=== PATIENT | female | born 1995 | race African-American/Black ===

== ENCOUNTER 2016-11-04 12:31 | Emergency (ER) | payer OTHER ==
[~2016-11-04] VITALS: Wt 52.2 kg
[~2016-11-04 12:31] MED LIST: BACTRIM DS 8001 TA1 PO; CIPRO500 MG PO; IRON325 M1 PO; KEFLEX500 MG PO; MACROBID100 M1 PO; MOTRIN600 MG PO; NAPROSYN500 MG PO; NKHM; PRENATAL1 TA1 PO; PRENATAL1 TA3 PO; PROTONIX40 MG PO; ZOFRAN ODT4 MG SL; [UNRECOGNIZED DRUG - REMARK]
[2016-11-04 12:43] VITALS: BP 139/89
== END 2016-11-04 14:00 | disposition home or self-care (01) ==
LOC: ED 12:31
DX: B34.9 Viral infection, unspecified (principal); F17.200 Nicotine dependence, unspecified, uncomplicated; Z79.899 Other long term (current) drug therapy; Z88.0 Allergy status to penicillin; Z88.1 Allergy status to other antibiotic agents

== ENCOUNTER 2022-07-18 11:55 | Emergency (ER) | payer OTHER ==
[~2022-07-18] VITALS: Ht 165.1 cm; Wt 49.9 kg
[2022-07-18 12:11] VITALS: BP 112/74
== END 2022-07-18 14:34 | disposition home or self-care (01) ==
LOC: ED 11:55
DX: J06.9 Acute upper respiratory infection, unspecified (principal); Z20.822 Contact with and (suspected) exposure to COVID-19; Z88.0 Allergy status to penicillin; Z88.1 Allergy status to other antibiotic agents

== ENCOUNTER 2022-07-21 17:28 | Emergency (ER) | payer OTHER ==
[~2022-07-21] VITALS: Ht 165.1 cm; Wt 49.9 kg
[2022-07-21 17:47] VITALS: BP 117/68
[2022-07-21] MEDS ORDERED: PROVENTIL HFA6.7 GM INH (21:30)
[2022-07-21] MEDS ORDERED: IBUPROFEN600 MG PO (21:30)
== END 2022-07-21 22:05 | disposition home or self-care (01) ==
LOC: ED 17:28
DX: B34.9 Viral infection, unspecified (principal); Z20.822 Contact with and (suspected) exposure to COVID-19; Z88.0 Allergy status to penicillin; Z88.1 Allergy status to other antibiotic agents

== ENCOUNTER 2023-07-28 20:43 | Emergency (ER) | payer SELFPAY ==
[~2023-07-28] VITALS: Ht 165.1 cm; Wt 50.0 kg
[~2023-07-28 20:43] MED LIST changes: +IBUPROFEN600 MG PO; +PROVENTIL HFA6.7 GM INH
[2023-07-28 21:03] VITALS: BP 130/85
[2023-07-28] MEDS ORDERED: OMNICEF300 MG PO (21:08)
== END 2023-07-28 21:28 | disposition home or self-care (01) ==
LOC: ED 20:43
DX: H66.92 Otitis media, unspecified, left ear (principal); Z88.0 Allergy status to penicillin; Z91.018 Allergy to other foods; Z88.1 Allergy status to other antibiotic agents

== ENCOUNTER 2023-10-14 06:03 | Emergency (ER) | payer SELFPAY ==
[~2023-10-14] VITALS: Ht 165.1 cm; Wt 68.0 kg
[~2023-10-14 06:03] MED LIST changes: +OMNICEF300 MG PO
[2023-10-14 06:12] VITALS: BP 138/66
[2023-10-14] MEDS ORDERED: Bacitracin Zinc 14 GM TUBE T ONE (06:20)
== END 2023-10-14 06:37 | disposition home or self-care (01) ==
LOC: ED 06:03
DX: L01.00 Impetigo, unspecified (principal); Z88.0 Allergy status to penicillin; Z88.1 Allergy status to other antibiotic agents; Z91.018 Allergy to other foods

== ENCOUNTER 2025-02-20 16:03 | Emergency (ER) | payer OTHER ==
[~2025-02-20] VITALS: Ht 165.1 cm; Wt 53.5 kg
[~2025-02-20 16:03] MED LIST changes: +CEPHALEXIN500 M1 PO
[2025-02-20 16:05] VITALS: BP 145/72
[2025-02-20] MEDS ORDERED: SODIUM CHLORIDE 0.9% 1,000 ML IV ONE (16:10)
[2025-02-20 16:30] LABS: BASO # 0.0 10*3/uL (0.0-0.1); BASO % 0.4 % (0.0-1.0); EOS # 0.1 10*3/uL (0.0-0.4); EOS % 0.6 % (1.0-4.0); MEAN CELL VOLUME 88.5 fl (81.0-99.0); MEAN CORPUSCULAR HGB 30.9 pg (27.0-31.0); MEAN PLATELET VOLUME 10.9 fl (9.6-12.3); MONO # 0.5 10*3/uL (0.1-1.0); MONO % 6.4 % (3.0-9.0); NEUT # 5.6 10*3/uL (2.3-7.9); NEUT % 67.1 % (47.0-73.0); NUCLEATED RED BLOOD CELL 0.0 % (0.0-0.0); NUCLEATED RED BLOOD CELL 0.0 10*3/uL (0.0-0.0); PLATELET COUNT AUTOMATED 173 10*3/uL (130-400); RED CELL DISTRI WIDTH 11.8 % (0-14.5)
[2025-02-20 16:58] LABS: BUN 7 mg/dl (9-23)
[2025-02-20 16:59] LABS: B-hCG (QUALITATIVE) POSITIVE (NEGATIVE)
== END 2025-02-20 17:39 | disposition home or self-care (01) ==
LOC: ED 16:03
PROVIDERS: Emergency Medicine
DX: R55 Syncope and collapse (principal); Z79.899 Other long term (current) drug therapy; Z88.0 Allergy status to penicillin; Z88.1 Allergy status to other antibiotic agents